=== PATIENT | male | born 1995 | race American Indian/Alaskan Native ===

== ENCOUNTER 2019-08-13 13:35 | Emergency (ER) | payer OTHER ==
[~2019-08-13] VITALS: Ht 177.8 cm; Wt 115.5 kg
[2019-08-13] MEDS ORDERED: HYDROcodone/acetaminophen 10/325mg tab PO ONE (13:45)
[2019-08-13] MEDS ORDERED: morphine 2 MG/ML inj. syringe IV ONE (16:05)
[2019-08-13] MEDS ORDERED: DOCU100C40 PO (17:07)
[2019-08-13] MEDS ORDERED: HYDR-4353 PO (17:07)
[2019-08-13 18:11] VITALS: BP 162/80
--- NOTE | 2019-08-13 18:11 | NUR ---
Alexia Cruz PA has checked splint, +cms to left toes, pt has ride home with family
== END 2019-08-13 18:13 | disposition home or self-care (01) ==
LOC: ER 13:35
DX: S92.312A Displaced fracture of first metatarsal bone, left foot, initial encounter for closed fracture (principal); S97.82XA Crushing injury of left foot, initial encounter; Z79.899 Other long term (current) drug therapy; X58.XXXA Exposure to other specified factors, initial encounter; Y93.89 Activity, other specified; Y92.89 Other specified places as the place of occurrence of the external cause; Y99.8 Other external cause status
CPT/HCPCS: 29515; 73590; 73610; 73630; 73700; 96374; 99284; J2270